=== PATIENT | male | born 1985 | race African-American/Black ===

== ENCOUNTER 2023-03-16 07:30 | Emergency (ER) | payer OTHER ==
[~2023-03-16] VITALS: Ht 185.4 cm; Wt 117.9 kg
== END 2023-03-16 14:17 | disposition home or self-care (01) ==
LOC: ER 07:30
PROVIDERS: General Practice
DX: R07.89 Other chest pain (principal)
CPT/HCPCS: 36415; 71045; 71046; 96365; 96366; 99284; J3490